=== PATIENT | male | born 1950 | race Caucasian/White ===

== ENCOUNTER → 2021-11-29 09:05 | Outpatient (BNVA) | payer MEDICARE, MEDICAID, SELFPAY | PROVIDERS: PCP Family Medicine; Visit Provider Nurse Practitioner Family | DX: G20 Parkinson's disease (principal); R41.3 Other amnesia | CPT/HCPCS: 99212 ==

== ENCOUNTER → 2022-02-28 09:46 | Outpatient (BNVA) | payer MEDICARE, MEDICAID, SELFPAY | PROVIDERS: PCP Family Medicine; Visit Provider Nurse Practitioner Family | DX: G20 Parkinson's disease (principal); R41.3 Other amnesia | CPT/HCPCS: 99212 ==

== ENCOUNTER → 2022-06-17 10:08 | Outpatient (BNVA) | payer MEDICARE, MEDICAID, SELFPAY | PROVIDERS: PCP Family Medicine; Visit Provider Nurse Practitioner Family | DX: G20 Parkinson's disease (principal) | CPT/HCPCS: 99212 ==

== ENCOUNTER → 2022-09-18 11:01 | Outpatient (BNVA) | payer MEDICARE, MEDICAID, SELFPAY | PROVIDERS: PCP Family Medicine; Visit Provider Nurse Practitioner Family | DX: G20 Parkinson's disease (principal); R41.3 Other amnesia | CPT/HCPCS: 99212 ==

== ENCOUNTER → 2022-12-17 07:51 | Outpatient (BNVA) | payer MEDICARE, MEDICAID, SELFPAY | PROVIDERS: PCP Family Medicine; Visit Provider Nurse Practitioner Family | DX: G20 Parkinson's disease (principal); R41.3 Other amnesia; Z79.899 Other long term (current) drug therapy | CPT/HCPCS: 99212 ==

== ENCOUNTER 2023-02-15 16:59 | Emergency (ER) | payer MEDICARE, MEDICAID, SELFPAY ==
--- NOTE | ~2023-02-15 | CT_ITS ---
EXAMINATION: CT HEAD WITHOUT CONTRAST CT CERVICAL SPINE WITHOUT CONTRAST CLINICAL INFORMATION: Fall, pain. COMPARISON: None TECHNIQUE: Contiguous axial imaging was performed from the skull base to vertex without intravenous administration of contrast. Contiguous axial imaging was performed from the upper chest through the skull base without intravenous administration of contrast. Coronal and sagittal reformats were obtained at the acquisition workstation. This CT examination was performed using dose optimization techniques as appropriate, variously including the following: *Automated exposure control *Adjustment of mA and/or kV according to patient size (this includes techniques or standardized protocols for targeted exams where dose is matched to indication/reason for exam; i.e. extremities or head) *Use of iterative reconstruction technique DLP: 621 mGy-cm FINDINGS: Evaluation is limited by motion. Head: There is no evidence of acute intracranial hemorrhage or edematous territorial infarction. A few foci of hypoattenuation in the periventricular and deep white matter are consistent with mild microangiopathy. Bates-white matter differentiation is preserved. Proportional prominence of the ventricles and sulcal spaces. No evidence for obstructive hydrocephalus. No abnormal mass effect or midline shift. No extra-axial fluid collections. No acute soft tissue or osseous abnormalities. The mastoid air cells and paranasal sinuses are clear. Cervical Spine: The atlantooccipital and atlantoaxial articulations remain well aligned. Straightening of the normal cervical lordosis. Grade 1 anterolisthesis of C3 on C4, likely degenerative in nature with no surrounding soft tissue thickening or hematoma. Otherwise, anatomic alignment. Moderate to severe multilevel cervical spondylosis with various degrees of neural foraminal encroachment or central canal narrowing. There is no prevertebral soft tissue swelling. The thyroid gland and remaining cervical soft tissues are normal in appearance. Emphysematous changes and mild biapical subpleural thickening/scarring in the lung apices. CT/CT cervical spine wo IV con IMPRESSION: Evaluation is limited by motion. However, accounting for this limitation, no acute intracranial abnormality or traumatic sequela in the cervical spine are noted.
--- NOTE | ~2023-02-15 | XR_ITS ---
EXAMINATION: XR ELBOW, RIGHT CLINICAL INFORMATION: Fall, pain. COMPARISON: None available. TECHNIQUE: AP, lateral, and oblique views of the right elbow. FINDINGS: Ossific bodies adjacent to the lateral humeral epicondyle could represent sequela of an avulsion injury. Anatomic alignment. No joint effusion. XR/XR elbow RT min 3V IMPRESSION: Ossific fragments adjacent to the lateral humeral epicondyle could represent sequela of an avulsion injury, correlate with point tenderness.
--- NOTE | ~2023-02-15 | XR_ITS ---
EXAMINATION: XR SHOULDER, RIGHT CLINICAL INFORMATION: Fall, pain. COMPARISON: None available. TECHNIQUE: Three views of the right shoulder. FINDINGS: No acute fractures or dislocation. Decrease acromiohumeral interval with mild superior subluxation of the humeral head, suggesting advanced rotator cuff disease. No abnormal soft tissue calcifications. The included portions of the lungs and ribs are unremarkable. XR/XR shoulder RT min 2V IMPRESSION: 1. No acute fractures or dislocation. 2. Findings suggesting advanced rotator cuff disease.
[2023-02-15 17:47] VITALS: BP 106/72; PULSE 97; RESP 18; TEMP 36.7; O2SAT 93; BMI 22.1
--- NOTE | 2023-02-15 17:47 | ED_ITS ---
HPI - General Adult General Chief complaint: Extremity Injury, Upper Stated complaint: Fall/ Right arm pain Time Seen by Provider: 02/15/23 19:46 Source: patient Mode of arrival: ambulatory Limitations: no limitations History of Present Illness HPI narrative: Patient is a 72 year old assigned male at with a history of parkinson's disease presenting to the emergency department today with right elbow pain after a fall. Patient states that 2 days ago he fell and struck his elbow and is continuing to have pain. Patient denies hitting his head or having any loss of consciousness. Patient denies any dizziness, lightheadedness, abdominal pain, nausea, vomiting, fever, chills, blurry vision, double vision, loss of vision, chest pain, difficulty breathing, shortness of breath, back pain, night sweats, pain with urination, increased urinary frequency, increased urinary urgency, blood in his urine or stool, syncope or a near syncopal episode, bowel incontinence, bladder incontinence, bowel retention, bladder retention, or any other complaints at this time. Onset (ago): day(s) (2) Location: right and upper extremity Severity: mild Severity scale (1-10): 1 Relieving factors: none Exacerbating factors: none Associated symptoms: denies other symptoms Treatments prior to arrival: none Related Data Home Medications Medication Instructions Recorded Confirmed albuterol sulfate 90 mcg/actuation 2 puff inhalation Q6H PRN 11/28/21 12/17/22 aerosol inhaler (ProAir HFA) fluticasone 500 mcg-salmeterol 50 1 inh inhalation BID 11/28/21 12/17/22 mcg/dose blistr powdr for inhalation (Advair Diskus) nicotine 21 mg/24 hr daily 1 patch transdermal DAILY 11/28/21 12/17/22 transdermal patch loratadine 10 mg tablet 10 mg PO DAILY 09/18/22 12/17/22 tiotropium bromide 2.5 2 puff inhalation DAILY 09/18/22 12/17/22 mcg/actuation mist for inhalation (Spiriva Respimat) triamcinolone acetonide 0.1 % appl topical BID 09/18/22 12/17/22 topical cream tamsulosin 0.4 mg capsule 0.4 mg PO DAILY 12/17/22 12/17/22 Previous Rx's Medication Instructions Recorded carbidopa 25 mg-levodopa 100 mg 2 tab PO QID 90 days #810 tabs 09/18/22 tablet trazodone 50 mg tablet 25 - 50 mg PO BEDTIME PRN insomnia 09/18/22 30 days #30 tabs carbidopa ER 23.75 mg-levodopa 95 4 cap PO QID 30 days #480 caps 12/17/22 mg capsule,extended release (Rytary) gabapentin 300 mg capsule 300 mg PO BID 90 days #180 caps 01/17/23 Allergies Allergy/AdvReac Type Severity Reaction Status Date / Time No Known Allergies Allergy Verified 02/15/23 17:47 [No Known Allergies*] Review of Systems Constitutional: Constitutional: Reports no additional constitutional complaints, Denies chills, Denies fever(s) and Denies night sweats Eyes: Eyes: Reports no additional eye complaints, Denies blurry vision, Denies change in vision, Denies diplopia, Denies eye discharge, Denies loss of vision and Denies eye pain ENT: Denies dizziness Cardiovascular: Cardiovascular: Reports no additional cardiovascular complaints, Denies chest pain, Denies lightheadedness, Denies Loss of Consciousness and Denies dyspnea Respiratory: Respiratory: Reports no additional respiratory complaints and Denies dyspnea Gastrointestinal: Gastrointestinal: Reports no additional gastrointestinal complaints, Denies abdominal pain, Denies melena, Denies hematochezia, Denies change in bowel habits and Denies change in stool character Genitourinary: Genitourinary: Reports no additional male genitourinary complaints, Denies hematuria, Denies oliguria, Denies difficulty urinating, Denies dysuria, Denies urinary frequency, Denies urinary hesitancy, Denies urinary incontinence and Denies urinary urgency Musculoskeletal: Musculoskeletal: Reports no additional musculoskeletal complaints, Denies numbness and Denies tingling Comments: right elbow pain Neurologic: Denies dizziness, Denies loss of vision, Denies numbness and Denies tingling Psychiatric: Psychiatric: Reports no additional psychiatric complaints Endocrine: Endocrine: Reports no additional endocrine complaints Hematologic/Lymphatic: Hematologic/Lymphatic: Reports no additional hematologic/lymphatic complaints Allergic/Immunologic: Allergic/Immunologic: Reports no additional allergic/immunologic complaints PMFSH Past Medical History Attestation statement: The following information was validated with the patient. Source: old records reviewed and nursing notes reviewed Surgical History H/O shoulder surgery H/O: knee surgery Social History Social History Alcohol intake: current Alcohol intake frequency: holidays/special occasions only Patient Tobacco Use Status: Current someday Tobacco user Tobacco use type: Cigarette Cigarette Packs Per Day: 1 Advance Directives: No Advance Directives Information Provided: No Physical Exam ED Vital Signs: Vital Signs - 24 hr 02/15/23 17:47 Temperature 98.0 F Pulse Rate 97 Respiratory Rate 18 Blood Pressure 106/72 Pulse Oximetry 93 Oxygen Delivery Method Room Air BMI result Body Mass Index 22.1 Const General: cooperative, no acute distress, alert and awake Nutritional Appearance: well nourished Orientation/consciousness: patient oriented x3 Limitations: no limitations HENMT Head: Yes normal to inspection and Yes atraumatic Ears: hearing grossly normal bilaterally and external ears normal General nose exam: Normal external nose present, no nasal discharge noted and no epistaxis Face and sinus: Yes normal facial exam, No abrasion and No laceration Mouth: Normal oral and palatal mucosa present, no drooling and no muffled voice Eyes General: appearance normal, both eyes and all related structures Periorbital: periorbital findings normal Eyelids: Yes eyelids normal Conjunctivae: conjunctivae normal Pupils: Equal, round and reactive pupils present EOM: EOMs intact bilaterally Neck Neck: Yes normal visual inspection, Yes full ROM and Yes no lymphadenopathy Chest Chest palpation & inspection: normal inspection of the chest Resp Effort & Inspection: normal respiratory effort and able to speak in complete sentences GI Inspection: Yes normal to inspection Neuro General: patient oriented x3 and moves all extremities Cranial nerves: Yes Equal, round and reactive pupils present Cognition (Neuro): normal cognition Motor exam (neuro): 5/5 motor strength present throughout Sensory Exam: Normal double simultaneous stimulation for sensation Coordination: [id number] test normal Extrem General: Yes normal to inspection, Yes full ROM and Yes capillary refill normal Psych Appearance: grossly normal Mental Status: mental status grossly normal Affect: normal affect Attitude: cooperative Thought process: Normal thought process present Thought content: Normal thought content present Insight: Good insight present (Psych) Course Course Course Narrative: RME performed by Ria Simon PA-C. Patient is a 72 year old assigned male at presenting to the emergency department with right arm pain. Imaging ordered. Patient placed back in the waiting room pending room availability and results. Medications Administered Discontinued Medications Generic Name Dose Route Start Last Admin Trade Name Alexandro CANALESN Reason Stop Dose Admin Ibuprofen 600 mg 02/15/23 19:53 02/15/23 19:57 Ibuprofen 600 Mg Tablet PO 02/15/23 19:54 600 mg ONCE ONE Administration Procedures Orthopedic Splinting/Casting Injury #1: Side: right Upper Extremity Immobilizer: sling/shoulder immobilizer Medical Decision Making Medical Decision Making MDM Narrative: Patient is a 72 year old assigned male at with a history of parkinson's disease presenting to the emergency department today with right elbow pain. Patient's physical exam was unremarkable. Patient's right elbow x-ray showed ossific fragments which could be a fracture. Patient's left shoulder, head CT, and C-Spine CT showed no acute process. I explained my physical exam findings as well as all test results to the patient. I answered all questions asked by the patient. Patient's right arm was put into a sling, without incident. I stressed the importance of the patient taking his medication as prescribed. I stressed the importance of the patient following up with his primary care provider and an orthopedic provider. I stressed the importance of the patient returning to the emergency department immediately if her symptoms were to worsen or if she were to develop any dizziness, shortness of breath, difficulty breathing, chest pain, blurry vision, loss of vision, nausea, vomiting, abdominal pain, fever, chills, back pain, or any other complaints. Patient verbalized agreement and understanding with this treatment plan and discharge. Differential Diagnosis Differential Diagnoses: The differential diagnosis associated with the presentation includes right elbow injury Independent Interpretation I performed an independent interpretation of an: Plain X-Ray and CT Scan Interpretation: My interpretation is in agreement with the radiologist's impression of these imaging studies. EXAMINATION: CT HEAD WITHOUT CONTRAST CT CERVICAL SPINE WITHOUT CONTRAST CLINICAL INFORMATION: Fall, pain.? COMPARISON: None TECHNIQUE: Contiguous axial imaging was performed from the skull base to vertex without intravenous administration of contrast. Contiguous axial imaging was performed from the upper chest through the skull base without intravenous administration of contrast. Coronal and sagittal reformats were obtained at the acquisition workstation. This CT examination was performed using dose optimization techniques as appropriate, variously including the following: *Automated exposure control *Adjustment of mA and/or kV according to patient size (this includes techniques or standardized protocols for targeted exams where dose is matched to indication/reason for exam; i.e. extremities or head) *Use of iterative reconstruction technique DLP: 621 mGy-cm FINDINGS: Evaluation is limited by motion. Head: There is no evidence of acute intracranial hemorrhage or edematous territorial infarction. A few foci of hypoattenuation in the periventricular and deep white matter are consistent with mild microangiopathy. Bates-white matter differentiation is preserved. Proportional prominence of the ventricles and sulcal spaces. No evidence for obstructive hydrocephalus. No abnormal mass effect or midline shift. No extra-axial fluid collections. No acute soft tissue or osseous abnormalities. The mastoid air cells and paranasal sinuses are clear. Cervical Spine: The atlantooccipital and atlantoaxial articulations remain well aligned. Straightening of the normal cervical lordosis. Grade 1 anterolisthesis of C3 on C4, likely degenerative in nature with no surrounding soft tissue thickening or hematoma. Otherwise, anatomic alignment. Moderate to severe multilevel cervical spondylosis with various degrees of neural foraminal encroachment or central canal narrowing. There is no prevertebral soft tissue swelling. The thyroid gland and remaining cervical soft tissues are normal in appearance. Emphysematous changes and mild biapical subpleural thickening/scarring in the lung apices. CT/CT cervical spine wo IV con IMPRESSION: Evaluation is limited by motion. However, accounting for this limitation, no acute intracranial abnormality or traumatic sequela in the cervical spine are noted. Dictated By: Crista Turner Signed By: Electronically signed by Crista Turner 02/15/23 1935 EXAMINATION: XR ELBOW, RIGHT CLINICAL INFORMATION: Fall, pain.? COMPARISON: None available.? TECHNIQUE: AP, lateral, and oblique views of the right elbow. FINDINGS: Ossific bodies adjacent to the lateral humeral epicondyle could represent sequela of an avulsion injury. Anatomic alignment. No joint effusion.? XR/XR elbow RT min 3V IMPRESSION: Ossific fragments adjacent to the lateral humeral epicondyle could represent sequela of an avulsion injury, correlate with point tenderness. Dictated By: Crista Turner Signed By: Electronically signed by Crista?Johnny 02/15/231936 EXAMINATION: XR SHOULDER, RIGHT CLINICAL INFORMATION: Fall, pain.? COMPARISON: None available.? TECHNIQUE: Three views of the right shoulder. FINDINGS: No acute fractures or dislocation. Decrease acromiohumeral interval with mild superior subluxation of the humeral head, suggesting advanced rotator cuff disease. No abnormal soft tissue calcifications. The included portions of the lungs and ribs are unremarkable.? XR/XR shoulder RT min 2V IMPRESSION: 1.? No acute fractures or dislocation. 2.? Findings suggesting advanced rotator cuff disease. Dictated By: Crista Turner Signed By: Electronically signed by Crista?Johnny 02/15/231939 Discharge Plan Discharge Clinical Impression: Fall, Elbow injury, Elbow fracture Patient Disposition: Home, Self-Care Instructions: How to Use a Sling (ED), Fall Prevention (ED) Additional Instructions: Follow up with your primary care provider and an orthopedic provider. Return to the emergency department immediately if your symptoms worsen or if you develop any dizziness, shortness of breath, difficulty breathing, chest pain, blurry vision, loss of vision, nausea, vomiting, abdominal pain, fever, chills, back pain, or any other complaints. Prescriptions: No Action gabapentin 300 mg capsule 300 mg PO BID 90 Days Qty: 180 1RF tamsulosin 0.4 mg capsule 0.4 mg PO DAILY Rytary 23.75-95 mg capsule, extended release 4 cap PO QID 30 Days Qty: 480 3RF Rx Instructions: divide evenly over waking hours fluticasone propion-salmeterol [Advair Diskus] 500-50 mcg/dose blister with device 1 inh inhalation BID nicotine 21 mg/24 hr patch 24 hour 1 patch transdermal DAILY albuterol sulfate [ProAir HFA] 90 mcg/actuation HFA aerosol inhaler 2 puff inhalation Q6H PRN loratadine 10 mg tablet 10 mg PO DAILY triamcinolone acetonide 0.1 % cream topical BID Spiriva Respimat 2.5 mcg/actuation mist 2 puff inhalation DAILY carbidopa-levodopa 25-100 mg tablet 2 tab PO QID 90 Days Qty: 810 1RF Rx Instructions: may take 1 extra tab per day (max 9 tabs per day) trazodone 50 mg tablet 25 - 50 mg PO BEDTIME PRN (Reason: insomnia) 30 Days Qty: 30 3RF Referrals: [facility] [Provider Group] (Call to establish and follow up with an orthopedic provider. ) Constantine Jones DO [Primary Care Provider] - Interventions: ED Discharge Assessment Last Done: 02/15/23 20:08 Discharge Date/Time: 02/15/23 20:09 Print Language: Hebrew
[2023-02-15] MEDS: Ibuprofen 600 MG TABLET PO (19:57)
== END 2023-02-15 20:09 | disposition home or self-care (01) ==
PROVIDERS: Emergency Provider Emergency Medicine; PCP Family Medicine
DX: S42.431A Displaced fracture (avulsion) of lateral epicondyle of right humerus, initial encounter for closed fracture (principal); W19.XXXA Unspecified fall, initial encounter; F17.210 Nicotine dependence, cigarettes, uncomplicated; G20 Parkinson's disease; Y93.9 Activity, unspecified; Y92.9 Unspecified place or not applicable; Y99.9 Unspecified external cause status
CPT/HCPCS: 70450; 72125; 73030; 73080; 99283

== ENCOUNTER 2023-03-13 10:19 | Outpatient (REF) | payer MEDICARE, MEDICAID, SELFPAY ==
--- NOTE | ~2023-03-13 | XR_ITS ---
EXAMINATION: XR ELBOW, RIGHT CLINICAL INFORMATION: Pain. COMPARISON: None available. TECHNIQUE: AP, lateral, and oblique views of the right elbow. FINDINGS: The bones and soft tissues are normal. No fracture or joint effusion. Alignment is anatomic. Joint spaces are maintained. XR/XR elbow RT min 3V IMPRESSION: Unremarkable right elbow.
== END 2023-03-13 10:20 | disposition home or self-care (01) ==
LOC: HO.HOSX 10:19
PROVIDERS: Visit Provider Physician Assistant
DX: S50.01XA Contusion of right elbow, initial encounter (principal)
CPT/HCPCS: 73080; 99202

== ENCOUNTER → 2023-03-17 10:38 | Outpatient (BNVA) | payer MEDICARE, MEDICAID, SELFPAY | PROVIDERS: PCP Family Medicine; Visit Provider Nurse Practitioner Family | DX: G20 Parkinson's disease (principal); R41.3 Other amnesia; Z91.81 History of falling | CPT/HCPCS: 99212 ==

== ENCOUNTER 2023-04-17 14:35 | Outpatient (REF) | payer MEDICARE, MEDICAID, SELFPAY ==
--- NOTE | ~2023-04-17 | XR_ITS ---
EXAMINATION: XR SHOULDER, LEFT CLINICAL INFORMATION: Reason for Exam M25.519 - Pain in unspecified shoulder COMPARISON: None TECHNIQUE: Three views of the shoulder. FINDINGS: No acute fracture or dislocation. Mild degenerative changes of the acromioclavicular and glenohumeral joints with degenerative spurring. Calcification adjacent to the greater tuberosity may reflect sequelae of hydroxyapatite deposition disease. Soft tissues are unremarkable. XR/XR shoulder LT min 2V IMPRESSION: 1. 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
== END 2023-04-17 14:36 | disposition home or self-care (01) ==
LOC: HO.HOSX 14:35
PROVIDERS: PCP Family Medicine; Visit Provider Physician Assistant
DX: M75.102 Unspecified rotator cuff tear or rupture of left shoulder, not specified as traumatic (principal); M25.512 Pain in left shoulder; G20 Parkinson's disease
CPT/HCPCS: 20610; 73030; 99212; J1040

== ENCOUNTER 2023-04-27 17:53 | Emergency (ER) | payer MEDICARE, MEDICAID, SELFPAY ==
--- NOTE | ~2023-04-27 | XR_ITS ---
EXAMINATION: XR CHEST CLINICAL INFORMATION: Cough. COMPARISON: CT chest 11/01/2022. TECHNIQUE: Frontal view of the chest was obtained. FINDINGS: Aneurysmal dilatation of the ascending thoracic aorta, best seen on CT from 11/01/2022. Otherwise, no significant cardiomediastinal contour abnormality. No focal airspace opacity, pleural effusion or pneumothorax. Emphysematous changes and biapical scarring best seen on CT from 11/01/2022. No acute osseous abnormalities. XR/XR chest 1V IMPRESSION: 1. No acute cardiopulmonary findings. 2. Aneurysmal dilatation of the ascending thoracic aorta and emphysematous changes, best seen on CT from 11/01/2022.
[2023-04-27 17:58] VITALS: BP 126/77; PULSE 98; RESP 16; TEMP 37.2; O2SAT 92; BMI 21.6
[2023-04-27 18:12] VITALS: BP 119/85; PULSE 66; RESP 18; TEMP 37.1; O2SAT 96
--- NOTE | 2023-04-27 18:12 | ED_ITS ---
HPI - General Adult General Chief complaint: Upper Respiratory Symptoms Stated complaint: asthma Time Seen by Provider: 04/27/23 18:11 Source: patient Mode of arrival: ambulatory Limitations: no limitations History of Present Illness HPI narrative: Patient is a 72 year old assigned male at with a history of asthma and parkinson's presenting to the emergency department today with a cough. Patient states that over the last week he has had a persistent cough and his inhaler is not helping as much as he would like it to. Patient denies any dizziness, lightheadedness, abdominal pain, nausea, vomiting, fever, chills, blurry vision, double vision, loss of vision, chest pain, back pain, night sweats, pain with urination, increased urinary frequency, increased urinary urgency, blood in his urine or stool, syncope or a near syncopal episode, recent trauma or falls, bowel incontinence, bladder incontinence, bowel retention, bladder retention, or any other complaints at this time. Onset (ago): week(s) (1) Severity: mild Severity scale (1-10): 2 Relieving factors: none Exacerbating factors: none Associated symptoms: cough Treatments prior to arrival: other (albuterol inhaler) Related Data Home Medications Medication Instructions Recorded Confirmed albuterol sulfate 90 mcg/actuation 2 puff inhalation Q6H PRN 11/28/21 03/17/23 aerosol inhaler (ProAir HFA) fluticasone 500 mcg-salmeterol 50 1 inh inhalation BID 11/28/21 03/17/23 mcg/dose blistr powdr for inhalation (Advair Diskus) nicotine 21 mg/24 hr daily 1 patch transdermal DAILY 11/28/21 03/17/23 transdermal patch tiotropium bromide 2.5 2 puff inhalation DAILY 09/18/22 03/17/23 mcg/actuation mist for inhalation (Spiriva Respimat) triamcinolone acetonide 0.1 % appl topical BID 09/18/22 03/17/23 topical cream tamsulosin 0.4 mg capsule 0.4 mg PO DAILY 12/17/22 03/17/23 betamethasone valerate 0.1 % topical BID 03/17/23 03/17/23 topical ointment hydrocortisone 2.5 % topical topical BID PRN 03/17/23 03/17/23 ointment Previous Rx's Medication Instructions Recorded carbidopa 25 mg-levodopa 100 mg 2 tab PO QID 90 days #810 tabs 09/18/22 tablet gabapentin 300 mg capsule 300 mg PO BID 90 days #180 caps 03/17/23 loratadine 10 mg tablet 10 mg PO DAILY 30 days #30 tabs 03/17/23 trazodone 50 mg tablet 25 - 50 mg PO BEDTIME PRN insomnia 03/17/23 30 days #30 tabs carbidopa ER 23.75 mg-levodopa 95 4 cap PO QID 30 days #480 caps 03/21/23 mg capsule,extended release (Rytary) prednisone 20 mg tablet 20 mg PO DAILY 7 days #7 tabs 04/27/23 Allergies Allergy/AdvReac Type Severity Reaction Status Date / Time No Known Allergies Allergy Verified 04/27/23 17:58 [No Known Allergies*] Review of Systems Constitutional: Constitutional: Reports no additional constitutional complaints, Denies chills, Denies fever(s) and Denies night sweats Eyes: Eyes: Reports no additional eye complaints, Denies blurry vision, Denies change in vision, Denies diplopia, Denies eye discharge, Denies loss of vision and Denies eye pain ENT: Denies dizziness Cardiovascular: Cardiovascular: Reports no additional cardiovascular complaints, Denies chest pain, Denies lightheadedness, Denies Loss of Consciousness and Denies dyspnea Respiratory: Respiratory: Reports no additional respiratory complaints, Reports cough and Denies dyspnea Gastrointestinal: Gastrointestinal: Reports no additional gastrointestinal complaints, Denies abdominal pain, Denies melena, Denies hematochezia, Denies change in bowel habits and Denies change in stool character Genitourinary: Genitourinary: Reports no additional male genitourinary complaints, Denies hematuria, Denies oliguria, Denies difficulty urinating, Denies dysuria, Denies urinary frequency, Denies urinary hesitancy, Denies urinary incontinence and Denies urinary urgency Musculoskeletal: Musculoskeletal: Reports no additional musculoskeletal complaints, Denies numbness and Denies tingling Neurologic: Denies dizziness, Denies loss of vision, Denies numbness and Denies tingling Psychiatric: Psychiatric: Reports no additional psychiatric complaints Endocrine: Endocrine: Reports no additional endocrine complaints Hematologic/Lymphatic: Hematologic/Lymphatic: Reports no additional hematologic/lymphatic complaints Allergic/Immunologic: Allergic/Immunologic: Reports no additional allergic/immunologic complaints PMFSH Past Medical History Attestation statement: The following information was validated with the patient. Source: old records reviewed and nursing notes reviewed Surgical History H/O shoulder surgery H/O: knee surgery Social History Social History Alcohol intake: current Alcohol intake frequency: holidays/special occasions only Patient Tobacco Use Status: Current someday Tobacco user Tobacco use type: Cigarette Cigarette Packs Per Day: 1 Advance Directives: No Advance Directives Information Provided: No Physical Exam ED Vital Signs: Vital Signs - 24 hr 04/27/23 17:58 04/27/23 18:12 04/27/23 18:58 Temperature 98.9 F 98.8 F Pulse Rate 98 66 85 Respiratory Rate 16 18 16 Blood Pressure 126/77 119/85 Pulse Oximetry 92 96 Oxygen Delivery Method Room Air Room Air BMI result Body Mass Index 21.6 Const General: cooperative, no acute distress, alert and awake Nutritional Appearance: well nourished Orientation/consciousness: patient oriented x3 Limitations: no limitations HENMT Head: Yes normal to inspection and Yes atraumatic Ears: hearing grossly normal bilaterally and external ears normal General nose exam: Normal external nose present, no nasal discharge noted and no epistaxis Face and sinus: Yes normal facial exam, No abrasion and No laceration Mouth: Normal oral and palatal mucosa present, no drooling and no muffled voice Eyes General: appearance normal, both eyes and all related structures Periorbital: periorbital findings normal Eyelids: Yes eyelids normal Conjunctivae: conjunctivae normal Pupils: Equal, round and reactive pupils present EOM: EOMs intact bilaterally Neck Neck: Yes normal visual inspection, Yes full ROM and Yes no lymphadenopathy Chest Chest palpation & inspection: normal inspection of the chest Resp Effort & Inspection: normal respiratory effort and able to speak in complete sentences Auscultation: wheezes scattered wheezes Cardio Rate: regular rate Rhythm: regular rhythm GI Inspection: Yes normal to inspection Palpation (GI): Soft to palpation, not firm, nontender and no guarding General: Yes no CVA tenderness Back/Spine/Pelvis Back: no CVA tenderness Cervical Spine: normal cervical lordosis and cervical ROM normal Thoracic/Lumbar Spine: thoracic and lumbar spine normal to inspection and thoraco-lumbar ROM normal Neuro General: patient oriented x3 and moves all extremities Cranial nerves: Yes Equal, round and reactive pupils present Cognition (Neuro): normal cognition Motor exam (neuro): 5/5 motor strength present throughout Sensory Exam: Normal double simultaneous stimulation for sensation Coordination: [id number] test normal Extrem General: Yes normal to inspection, Yes full ROM and Yes capillary refill normal Psych Appearance: grossly normal Mental Status: mental status grossly normal Affect: normal affect Attitude: cooperative Thought process: Normal thought process present Thought content: Normal thought content present Insight: Good insight present (Psych) Medications Administered Discontinued Medications Generic Name Dose Route Start Last Admin Trade Name Freq PRN Reason Stop Dose Admin Albuterol Sulfate 5 mg/ 0 mg 04/27/23 18:20 04/27/23 18:57 Albuterol/Ipratropium 3 ml INHALE 04/27/23 18:21 1 each ONCE ONE Administration Prednisone 20 mg 04/27/23 18:20 04/27/23 18:25 Prednisone 20 Mg Tablet PO 04/27/23 18:21 20 mg ONCE ONE Administration Medical Decision Making Medical Decision Making MDM Narrative: Patient is a 72 year old assigned male at with a history of asthma and parkinson's disease presenting to the emergency department today with a cough. Patient's physical exam was unremarkable. Patient's chest x-ray showed no acute process. Patient's COVID/Influenza/RSV swab was negative. Patient was given a breathing treatment which he stated helped his symptoms significantly. I explained my physical exam findings as well as all test results to the patient. I answered all questions asked by the patient. I stressed the importance of the patient taking his medication as prescribed. I stressed the importance of the patient following up with his primary care provider. I stressed the importance of the patient returning to the emergency department immediately if his symptoms were to worsen or if he were to develop any dizziness, shortness of breath, difficulty breathing, chest pain, blurry vision, loss of vision, nausea, vom iting, abdominal pain, fever, chills, back pain, or any other complaints. Patient verbalized agreement and understanding with this treatment plan and discharge. Differential Diagnosis Differential Diagnoses: The differential diagnosis associated with the presentation includes asthma exacerbation Admission/Observation Consideration of admission/observation: Escalation of care including admission/observation considered Patient would have been admitted to the hospital had his work up had any findings where hospital admission was appropriate. Lab Data MDM Lab Attestation statement: I reviewed the patient's lab results. My interpretation of these studies and their corresponding values is that they are grossly normal. Labs: Lab Results 04/27/23 Range/Units 18:17 Influenza Type A (PCR) NEGATIVE (Negative) Influenza Type B (PCR) NEGATIVE (Negative) RSV RNA Qual (PCR) NEGATIVE (Negative) SARS-CoV-2 RNA (RT-PCR) NEGATIVE (Negative) Independent Interpretation I performed an independent interpretation of an: Plain X-Ray Interpretation: My interpretation is in agreement with the radiologist's impression of this imaging study. EXAMINATION: XR CHEST CLINICAL INFORMATION: Cough. COMPARISON: CT chest 11/01/2022. TECHNIQUE: Frontal view of the chest was obtained. FINDINGS: Aneurysmal dilatation of the ascending thoracic aorta, best seen on CT from 11/01/2022. Otherwise, no significant cardiomediastinal contour abnormality. No focal airspace opacity, pleural effusion or pneumothorax. Emphysematous changes and biapical scarring best seen on CT from 11/01/2022. No acute osseous abnormalities. XR/XR chest 1V IMPRESSION: 1.? No acute cardiopulmonary findings. 2.? Aneurysmal dilatation of the ascending thoracic aorta and emphysematous changes, best seen on CT from 11/01/2022. Dictated By: Crista Turner Signed By: Electronically signed by Crista Turner 04/27/231922 Discharge Plan Discharge Clinical Impression: Asthma Patient Disposition: Home, Self-Care Instructions: Asthma (DC) Additional Instructions: Follow up with your primary care provider. Return to the emergency department immediately if your symptoms worsen or if you develop any dizziness, shortness of breath, difficulty breathing, chest pain, blurry vision, loss of vision, nausea, vomiting, abdominal pain, fever, chills, back pain, or any other complaints. Prescriptions: New prednisone 20 mg tablet 20 mg PO DAILY 7 Days Qty: 7 0RF No Action Rytary 23.75-95 mg capsule, extended release 4 cap PO QID 30 Days Qty: 480 3RF Rx Instructions: divide evenly over waking hours tamsulosin 0.4 mg capsule 0.4 mg PO DAILY hydrocortisone 2.5 % ointment topical BID PRN betamethasone valerate 0.1 % ointment topical BID gabapentin 300 mg capsule 300 mg PO BID 90 Days Qty: 180 1RF trazodone 50 mg tablet 25 - 50 mg PO BEDTIME PRN (Reason: insomnia) 30 Days Qty: 30 3RF loratadine 10 mg tablet 10 mg PO DAILY 30 Days Qty: 30 6RF fluticasone propion-salmeterol [Advair Diskus] 500-50 mcg/dose blister with device 1 inh inhalation BID nicotine 21 mg/24 hr patch 24 hour 1 patch transdermal DAILY albuterol sulfate [ProAir HFA] 90 mcg/actuation HFA aerosol inhaler 2 puff inhalation Q6H PRN triamcinolone acetonide 0.1 % cream topical BID Spiriva Respimat 2.5 mcg/actuation mist 2 puff inhalation DAILY carbidopa-levodopa 25-100 mg tablet 2 tab PO QID 90 Days Qty: 810 1RF Rx Instructions: may take 1 extra tab per day (max 9 tabs per day) Referrals: Constantine Jones DO [Primary Care Provider] - Interventions: ED Discharge Assessment Last Done: 04/27/23 19:42 Discharge Date/Time: 04/27/23 19:42 Print Language: Andorran
--- NOTE | 2023-04-27 18:21 | PC.NURSE ---
Alert and oriented. arrived from home for sob and cough since 04/19. States that he is cough up some sputum that was yellow but it now clear. Denies home 02 use- 96% on RA. VSS. Denies chest pain or headache. State used inhaler about 1 hour before coming to ED. Was at urgent care yesterday and he stated they had no findings.
[2023-04-27] MEDS: predniSONE 20 MG TABLET PO (18:25)
[2023-04-27 18:58] VITALS: PULSE 85; RESP 16; O2SAT 94
[2023-04-27 19:05] LABS: Influenza A PCR NEGATIVE (Negative); Influenza B PCR NEGATIVE (Negative); Resp Syncy Virus RNA Qual PCR NEGATIVE (Negative); SARS COV2 PCR INHOUSE NEGATIVE (Negative)
== END 2023-04-27 19:42 | disposition home or self-care (01) ==
PROVIDERS: Emergency Provider Emergency Medicine; PCP Family Medicine
DX: J45.909 Unspecified asthma, uncomplicated (principal); Z20.822 Contact with and (suspected) exposure to COVID-19; Z20.828 Contact with and (suspected) exposure to other viral communicable diseases; G20 Parkinson's disease; F17.210 Nicotine dependence, cigarettes, uncomplicated; Z79.899 Other long term (current) drug therapy
CPT/HCPCS: 0241U; 71045; 94640; 99284

== ENCOUNTER 2023-07-03 10:47 | Outpatient (AMB) | payer MEDICARE, MEDICAID, SELFPAY ==
--- NOTE | 2023-07-03 11:16 | MHC.OFFVIS ---
Intake Vital Signs 07/03/23 11:27 Height 5 ft 11 in Weight 162 lb BMI 22.6 Position Sitting Pulse 68 Pulse Source Pulse Oximeter Pulse Oximetry (%) 97 Oxygen Delivery Method Room Air Intake Visit Reasons: 3m follow up - Confirmed Intake Note: Patient presents for 3 month follow up. Patient states I'm just loosing it, my caregiver walked out with some money after I forgot my wallet around the house. I just feel like I'm falling apart. Allergies No Known Allergies [No Known Allergies*] Allergy (Verified 07/03/23 11:34) Medication List - Last Reconciled 07/03/23 by JESENIA Caraballo albuterol sulfate 90 mcg/actuation (ProAir HFA) 2 puffs inhalation Q6H PRN betamethasone valerate 0.1% topical BID carbidopa-levodopa 23.75-95 mg ER (Rytary) 4 caps qid and 2 caps qhs orally 4 times a day; divide evenly over waking hours 30 days fluticasone propion-salmeterol 500-50 mcg/dose (Advair Diskus) 1 inh inhalation BID gabapentin 300 mg PO BID 90 days hydrocortisone 2.5% topical BID PRN loratadine 10 mg PO DAILY 30 days nicotine 1 patch transdermal DAILY prednisone 20 mg PO DAILY 7 days tamsulosin 0.4 mg PO DAILY tiotropium bromide 2.5 mcg/actuation (Spiriva Respimat) 2 puffs inhalation DAILY trazodone 25 - 50 mg (0.5 - 1 x 50 mg) PO BEDTIME PRN 30 days triamcinolone acetonide 0.1% appl topical BID HPI HPI Comments History of Present Illness Details 72-yr-old male presents for f/u visit for PD. Pt denies any significant interval medical history changes. He feels that he is overall falling a part . He is feeling more sleepy and his balance is still not great. He is doing PT at [facility]. Pt's current PD medication regimen: Rytary 23.75-95mg 4 caps 4 x's per day- feels more mellow on this. Occasionally may take an extra 2 caps- helps with sleep and clearing his head- he may take this instead of the Trazodone. ADL's: Ind, slow. Except needs someone to near by during showers. IADLs: Has a [employer] through [employer]- for ADL supervision, meals, housekeeping. Swallowing: No issues Orthostatic lightheadedness: Not noticing this. Constipation: None Freezing: Occasionally. Stiffness: None Tremor: Stable, but left hand shakes if stressed. Dyskinesia: Not as much Falls: He is trying to be more cautious when walking. His last fall was 3 weeks ago- got out of his car and started walking and just fell. He wonders if this was caused by taking a marijuana inhaler just before. Hallucinations: Stable. Memory: Loses train of thought. Recently messed up his [employer] hrs- unintentionally had one new [employer] use more hrs then planned/scheduled- so effected the rest of his coverage for the week. Mood: He states he is bummed that he does not have a relationship- and does not have a great relationship w/ his children. Sleep: Sleeping more with Trazodone- using prn. Having increased vivid dreams- not bothersome. Exercise: He states he goes then does not go to [facility]. [facility] Surgical History H/O shoulder surgery H/O: knee surgery Social History Alcohol intake: current Alcohol intake frequency: holidays/special occasions only Patient Tobacco Use Status: Current someday Tobacco user Tobacco use type: Cigarette Cigarette Packs Per Day: 1 Review of Systems Const All systems reviewed & are unremarkable except as noted in HPI and below Physical Exam Vital Signs: Last Vital Signs Pulse 68 07/03/23 11:27 Pulse Ox 97 07/03/23 11:27 Oxygen Delivery Method Room Air 07/03/23 11:27 BMI result Body Mass Index 22.6 Const General: cooperative and no acute distress Resp Effort & Inspection: normal respiratory effort and able to speak in complete sentences Neuro Other: Expression: Decreased expression and blink Voice: Softness Tremor: BUE postural tremor Tone: Mild tone in right elbow. Dyskinesia: None FFM: BUE bradykinesia- more so on left Foot taps: BLE bradykinesia- better able to do today Gait: Slow to stand, uses hands, less stoop, decreased arm swing, narrow heel base w/ bilateral foot external rotation, short steps, steady w/ cane. Psych: Pleasant affect. General: patient oriented x3, less STM lapses Assessment & Plan Assessment & Plan (1) Parkinson's disease: Comment: Positive Susanne scan- April 2021. 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 Continue Gabapentin 300mg bid. Continue PT, regular exercise, use cane. Minimize marijuana use. Previous trials- Nuplazid 34mg qd- not tolerated- although possibly intolerance was r/t coexisting COVID-19 infection. f/u in 4 months or sooner prn. Medications: Changed From carbidopa-levodopa 23.75-95 mg ER (Rytary) divide evenly over waking hours 4 caps PO QID 480 caps 3RF 30 days To carbidopa-levodopa 23.75-95 mg ER (Rytary) 4 caps qid and 2 caps qhs orally 4 times a day; divide evenly over waking hours 540 caps 6RF 30 days Discontinued carbidopa-levodopa 25-100 mg may take 1 extra tab per day (max 9 tabs per day) Discontinued Reason: Doctor's Order 2 tabs PO QID 810 tabs 1RF 90 days Coding Level of Care Code Est Pt Level 4 (93106) Diagnoses Parkinson's disease G20 Memory difficulties R41.3 Psychosis due to Parkinson's disease G20
[2023-07-03 11:27] VITALS: PULSE 68; O2SAT 97; BMI 22.6
== END 2023-07-03 12:10 | disposition home or self-care (01) ==
PROVIDERS: Visit Provider Nurse Practitioner Family
DX: G20 Parkinson's disease (principal); R41.3 Other amnesia
CPT/HCPCS: 99214

== ENCOUNTER → 2023-07-03 10:47 | Outpatient (BNVA) | payer MEDICARE, MEDICAID, SELFPAY | PROVIDERS: Visit Provider Nurse Practitioner Family | DX: G20 Parkinson's disease (principal); R41.3 Other amnesia; Z79.899 Other long term (current) drug therapy | CPT/HCPCS: 99212 ==

== ENCOUNTER 2023-10-27 10:45 | Outpatient (AMB) | payer MEDICARE, MEDICAID, SELFPAY ==
--- NOTE | 2023-10-27 10:49 | MHC.OFFVIS ---
Intake Vital Signs 10/27/23 11:00 Height 5 ft 11 in Weight 162 lb BMI 22.6 BP 110/82 Blood Pressure Location Rt brachial Position Sitting Pulse 86 Pulse Source Pulse Oximeter Pulse Oximetry (%) 95 Oxygen Delivery Method Room Air Intake Visit Reasons: 4m follow up-Confirmed Intake Note: Patient presents for 4 month follow up. Allergies No Known Allergies [No Known Allergies*] Allergy (Verified 10/27/23 10:59) Medication List - Last Reconciled 10/27/23 by JESENIA Caraballo albuterol sulfate 90 mcg/actuation (ProAir HFA) 2 puffs inhalation Q6H PRN betamethasone valerate 0.1% topical BID carbidopa-levodopa 23.75-95 mg ER (Rytary) 4 caps qid and 2 caps qhs orally 4 times a day; divide evenly over waking hours 30 days fluticasone propion-salmeterol 500-50 mcg/dose (Advair Diskus) 1 inh inhalation BID gabapentin 300 mg PO BID 90 days hydrocortisone 2.5% topical BID PRN loratadine 10 mg PO DAILY 30 days nicotine 1 patch transdermal DAILY prednisone 20 mg PO DAILY 7 days tamsulosin 0.4 mg PO DAILY tiotropium bromide 2.5 mcg/actuation (Spiriva Respimat) 2 puffs inhalation DAILY trazodone 25 - 50 mg (0.5 - 1 x 50 mg) PO BEDTIME PRN 30 days triamcinolone acetonide 0.1% appl topical BID HPI HPI Comments History of Present Illness Details 72-yr-old male presents for f/u visit, accompanied by his [employer]. Pt denies any significant interval medical history changes. Pt's current PD medication regimen: Rytary 23.75-95mg cap- 4 caps QID and 2 caps qhs. Rytary effect can wear off as next dose is due ADL's: Ind, slow. Except needs someone to near by during showers. 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 Swallowing: May have difficulty w/ white rice or apple peels Orthostatic lightheadedness: Not noticing this. Constipation: None Freezing: Occasionally. Stiffness: None Tremor: More shaky when he is due for his next Rytary Dyskinesia: Not as much Falls: No interval falls Hallucinations: Stable Memory: Loses train of thought. Some days is more spacey in the am. Other days, he is very good. He is playing games. Mood: His mood is better Sleep: Sleeping more with Trazodone- using prn. Having vivid dreams- not bothersome. Exercise: Taking walks- at the park or at the mall. Not going to the gym Other- has allergy and cough symptoms- triggered by his neighbors using scented laundry products- as his apartment abuts the laundry room. [facility] Surgical History H/O shoulder surgery H/O: knee surgery Social History Alcohol intake: current Alcohol intake frequency: holidays/special occasions only Patient Tobacco Use Status: Current someday Tobacco user Tobacco use type: Cigarette Cigarette Packs Per Day: 1 Review of Systems Const All systems reviewed & are unremarkable except as noted in HPI and below Physical Exam Vital Signs: Last Vital Signs Pulse 86 10/27/23 11:00 BP 110/82 10/27/23 11:00 Pulse Ox 95 10/27/23 11:00 Oxygen Delivery Method Room Air 10/27/23 11:00 BMI result Body Mass Index 22.6 Const General: cooperative and no acute distress Resp Effort & Inspection: normal respiratory effort and able to speak in complete sentences Neuro Other: General: A&O. Mild STM lapses. Expression: Decreased expression and blink Voice: Softness Tremor: LUE rest tremor, BUE postural tremor Tone: Mild tone in right elbow. Dyskinesia: None today FFM: BUE bradykinesia- more so on left Foot taps: BLE bradykinesia- more so on left Gait: Slow to stand, uses hands, slight stoop, decreased arm swing, narrow heel base w/ bilateral foot external rotation, short steps, steady w/ cane. Psych: Pleasant affect Assessment & Plan Assessment & Plan (1) Parkinson's disease with dyskinesia and fluctuating manifestations: Code(s): G20.B2 - Parkinson's disease with dyskinesia, with fluctuations Plan Continue Rytay 23.75-95mg cap- 4 caps QID and 2 caps qhs Continue Trazodone 25-50mg qhs for sleep. Continue Gabapentin 300mg bid. Resume Loratadine 10mg qd- for allergy s/s. Discussed tips to minimize dyshagia- chew fully/slowly, avoid loose rice, avoid fruits w/ firm skin such as apples. Continue regular exercise, walking, use cane. Continue cognitively stimulating activities- including games. Minimize marijuana use. Previous trials- Nuplazid 34mg qd- not tolerated- although possibly intolerance was r/t coexisting COVID-19 infection. f/u in 4 months or sooner prn. Medications: Refilled loratadine 10 mg PO DAILY 30 days 30 tabs 6RF Coding Level of Care Code Est Pt Level 4 (89927) Diagnoses Parkinson's disease with dyskinesia and fluctuating manifestations G20.B2
[2023-10-27 11:00] VITALS: BP 110/82; PULSE 86; O2SAT 95; BMI 22.6
== END 2023-10-27 11:38 | disposition home or self-care (01) ==
PROVIDERS: PCP Family Medicine; Visit Provider Nurse Practitioner Family
DX: G20.B2 Parkinson's disease with dyskinesia, with fluctuations (principal)
CPT/HCPCS: 99214

== ENCOUNTER → 2023-10-27 10:45 | Outpatient (BNVA) | payer MEDICARE, MEDICAID, SELFPAY | PROVIDERS: PCP Family Medicine; Visit Provider Nurse Practitioner Family | DX: G20.B2 Parkinson's disease with dyskinesia, with fluctuations (principal) | CPT/HCPCS: 99212 ==

== ENCOUNTER 2024-09-01 12:04 | Outpatient (AMB) | payer MEDICARE, MEDICAID, SELFPAY ==
--- NOTE | 2024-09-01 13:01 | A.OFFVIS_ITS ---
Vital Signs 09/01/24 13:04 Height 5 ft 11 in Weight 167 lb BMI 23.3 BP 116/82 Blood Pressure Location Rt brachial Position Sitting Intake Visit Reasons: 4 mo f/u -CONF Intake Note: Patient here for follow up Allergies No Known Allergies [No Known Allergies*] Allergy (Verified 09/01/24 13:05) Medication List - Last Reconciled 09/01/24 by JESENIA Caraballo albuterol sulfate 90 mcg/actuation (ProAir HFA) 2 puffs inhalation Q6H PRN betamethasone valerate 0.1% topical BID carbidopa-levodopa 23.75-95 mg ER (Rytary) 4 caps qid and 2 caps qhs orally 4 times a day; divide evenly over waking hours 30 days fluticasone propion-salmeterol 500-50 mcg/dose (Advair Diskus) 1 inh inhalation BID gabapentin 300 mg PO BID 90 days hydrocortisone 2.5% topical BID PRN loratadine 10 mg PO DAILY 30 days nicotine 1 patch transdermal DAILY prednisone 20 mg PO DAILY 7 days tamsulosin 0.4 mg PO DAILY tiotropium bromide 2.5 mcg/actuation (Spiriva Respimat) 2 puffs inhalation DAILY trazodone 25 - 50 mg (0.5 - 1 x 50 mg) PO BEDTIME PRN 30 days triamcinolone acetonide 0.1% appl topical BID HPI Comments Details: 73-yr-old male presents for f/u visit, accompanied by his DIRECTOR OF LEARNING, Zaida. Pt plans to have Right foot hammertoe surgery in the next month or so. Since the last visit, insurance required that pt try CD-LD ER version, however this caused increased dyskinesias so he switched back to Rytary- he is using a bit less than before to prevent the dyskinesias. Pt's current PD medication regimen: Rytary 23.75-95mg cap- 2 in am, 1 at lunch, 1 at dinner time during his meal, 1 at 9pm. May take 2 caps at times if more of f. ADL's: Needing more help w/ most ADLs. IADLs: Has a DIRECTOR OF LEARNING through [facility]- for ADL supervision, meals, housekeeping. Swallowing: Not really Orthostatic lightheadedness: Rarely Constipation: None Freezing: More so at late evening-night. Stiffness: None Tremor: Continues to have tremor- difficulty w/ writing. DIRECTOR OF LEARNING states is better. Dyskinesia: Not as much Falls: No recent falls Hallucinations: Stable- sees little things running around. Memory: Loses train of thought. Some days is more spacey in the am. Other days, he is very good. Mood: Mood is stable. But can be frustrated- say when he is having difficulty [place] the [place]. Sleep: Fragmented sleep. Stopped Trazodone caused a hangover feeling. Having vivid dreams- not bothersome. Exercise: Taking walks- at the park [facility] Surgical History H/O shoulder surgery H/O: knee surgery Social History Alcohol intake: current Alcohol intake frequency: holidays/special occasions only Patient Tobacco Use Status: Current someday Tobacco user Tobacco use type: Cigarette Cigarette Packs Per Day: 1 Physical Exam Vital Signs: Last Vital Signs BP 116/82 09/01/24 13:04 BMI result Body Mass Index 23.3 Const General: cooperative and no acute distress Resp Effort & Inspection: normal respiratory effort and able to speak in complete sentences Neuro Other: General: A&O. Mild STM lapses. A bit more difficulty following the conversation. Expression: Decreased expression and blink Voice: Softness Tremor: LUE rest tremor, BUE postural tremor Tone: Mild tone in L > R elbow. Dyskinesia: None today FFM: BUE bradykinesia- more so on left Foot taps: BLE bradykinesia- more so on left Gait: Slow to stand needing more assist, uses hands, slight stoop, decreased arm swing, knees bent, narrow heel base w/ bilateral foot external rotation, short steps, steady w/ cane. Psych: Pleasant affect Assessment & Plan Assessment & Plan (1) Parkinson's disease with dyskinesia and fluctuating manifestations: Code(s): G20.B2 - Parkinson's disease with dyskinesia, with fluctuations Category: Medical Plan Continue Rytay 23.75-95mg cap- 2 caps in am and 1 cap TID. May take up to 2 caps QID. Advised to take prior to meals/protein. Continue Gabapentin 300mg bid. Continue Loratadine 10mg qd prn- for allergy s/s. Start Namenda ER 7mg qd- for cognition. If tolertaed will increase to 14mg, then 21mg, and then 28mg when refill due. Continue strategies to minimize dysphagia. Continue regular exercise, walking, use cane. Continue cognitively stimulating activities- resume playing games. Minimize marijuana use. Previous trials- Nuplazid 34mg qd- not tolerated- although possibly intolerance was r/t coexisting COVID-19 infection. CD-LD IR and CD-LD ER- causes dyskinesias and increased wearing off. f/u in 6 months or sooner prn. Medications: New memantine (Namenda XR) 7 mg PO DAILY 30 ea 1RF 30 days Coding Level of Care Code Est Pt Level 4 (60631) Diagnoses Parkinson's disease with dyskinesia and fluctuating manifestations G20.B2
[2024-09-01 13:04] VITALS: BP 116/82; BMI 23.3
== END 2024-09-01 13:41 | disposition home or self-care (01) ==
PROVIDERS: PCP Family Medicine; Visit Provider Nurse Practitioner Family
DX: G20.B2 Parkinson's disease with dyskinesia, with fluctuations (principal)
CPT/HCPCS: 99214

== ENCOUNTER → 2024-09-01 12:04 | Outpatient (BNVA) | payer MEDICARE, MEDICAID, SELFPAY | PROVIDERS: PCP Family Medicine; Visit Provider Nurse Practitioner Family | DX: G20.B2 Parkinson's disease with dyskinesia, with fluctuations (principal) | CPT/HCPCS: 99212 ==